=== PATIENT | female | born 1965 | race Caucasian/White ===

== ENCOUNTER 2020-07-28 16:18 | Emergency (ER) | payer OTHER ==
[2020-07-28 16:41] VITALS: BP 114/75; PULSE 71; TEMP 98.7; BMI 29.9
[2020-07-28] MEDS ORDERED: LIDOCAINE 5% TOPICAL PATCH TP ONE (16:41)
[2020-07-28] MEDS ORDERED: IBUPROFEN 600 MG TABLET (FP) PO ONE ×2 (16:41→16:43)
[2020-07-28] MEDS ORDERED: LIDOCAINE 5% TOPICAL PATCH ONE (16:43)
== END 2020-07-28 17:10 | disposition home or self-care (01) ==
LOC: FER 16:18
DX: R07.9 Chest pain, unspecified (principal)
CPT/HCPCS: 71046-TC-FY; 71101-TC-RT-FY; 99284-25